=== PATIENT | female | born 1990 ===

== ENCOUNTER 2021-12-22 18:25 | Emergency (ER) | payer BC ==
[2021-12-22] MEDS ORDERED: Sodium Chloride 0.9% 1,000 ML IV ONE (19:08)
[2021-12-22] MEDS ORDERED: Metoprolol Tartrate 5 MG/5 ML SDV IVPUSH ONE (19:09)
[2021-12-22 19:25] LABS: BLOOD UREA NITROGEN,BUN 11 mg/dL (7.0-18.0); CARBON DIOXIDE,CO2 25.3 mmol/L (21.0-32.0); CHLORIDE,CL 102 mmol/L (98-107); GLUCOSE RANDOM 123 mg/dL (74-106); POTASSIUM,K 3.3 mmol/L (3.5-5.1); SODIUM,NA 139 mmol/L (136-145)
[2021-12-22] MEDS ORDERED: Potassium Chloride 20 MEQ Tab.ER PO ONE (20:04)
== END 2021-12-22 20:25 | disposition home or self-care (01) ==
LOC: MW.ED 18:25
DX: I47.1 Supraventricular tachycardia (principal)
CPT/HCPCS: 36415; 80053; 80162; 83735; 84484; 84703; 85025; 93005; 96374; 99285; A9270; J3490; J7030

== ENCOUNTER 2022-08-31 15:25 | Emergency (ER) | payer BC ==
[2022-08-31] MEDS ORDERED: Acetaminophen/HYDROcodone 325-5 MG Tab PO ONE (16:07)
== END 2022-08-31 19:05 | disposition home or self-care (01) ==
LOC: MW.ED 15:25
DX: G89.18 Other acute postprocedural pain (principal); R10.31 Right lower quadrant pain; J45.909 Unspecified asthma, uncomplicated; Z79.899 Other long term (current) drug therapy
CPT/HCPCS: 93926; 93971; 99283; A9270